=== PATIENT | male | born 1970 | race Caucasian/White ===

== ENCOUNTER 2017-01-15 18:41 | Emergency (ER) | payer MEDICARE ==
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
[2017-01-15 19:48] VITALS: BP 156/97
== END 2017-01-15 20:08 | disposition short-term general hospital (02) ==
LOC: ER 18:41
DX: G95.9 Disease of spinal cord, unspecified (principal); W31.9XXA Contact with unspecified machinery, initial encounter; Y93.9 Activity, unspecified; Y92.9 Unspecified place or not applicable; Y99.9 Unspecified external cause status